=== PATIENT | male | born 1935 | race Caucasian/White ===

== ENCOUNTER 2016-10-14 15:22 | Inpatient (IN) | payer OTHER ==
[~2016-10-14] VITALS: Ht 170.2 cm; Wt 73.5 kg
[~2016-10-14 15:22] MED LIST: ASPI-COR81 M3 PO; METOPROLOL SUCC50 M1 PO; PHOSLO667 MG PO; SIMVASTATIN10 M1 PO
[2016-10-14] MEDS ORDERED: NIFEDIPINE60 MG PO (18:53)
[2016-10-14 18:54] LABS: PLATELET COUNT 163 x10^3mcL (130-400)
[2016-10-14] MEDS ORDERED: LOSARTAN POTASS50 M1 PO (18:54)
[2016-10-14] MEDS ORDERED: HYDRALAZINE HCL25 MG PO (18:54)
[2016-10-14 19:13] LABS: RED CELL DISTRIBUTION WIDTH 14.8 % (11.5-14.5)
[2016-10-14 19:17] LABS: ALBUMIN 3.5 g/dL (3.4-5.0); ALKALINE PHOSPHATASE 149 U/L (46-116); ALT/SGPT 20 U/L (16-63); AST/SGOT 19 U/L (15-37); BILIRUBIN TOTAL 0.62 mg/dL (0.20-1.00); CALCIUM 8.3 mg/dL (8.5-10.1); CARBON DIOXIDE 33.5 mmol/L (21-32); CHLORIDE SERUM 103 mmol/L (98-107); GLUCOSE SERUM 320 mg/dL (74-106); HDL CHOLESTEROL 57 mg/dL (40-60); LIPASE 274 IU/L (73-393); POTASSIUM SERUM 3.9 mmol/L (3.5-5.1); SODIUM SERUM 141 mmol/L (136-145); TOTAL PROTEIN, SERUM 6.6 g/dL (6.4-8.2); TRIGLYCERIDES 55 mg/dL (<150)
[2016-10-14 19:18] LABS: CHOLESTEROL 100 mg/dL (<200); CHOLESTEROL/HDL RATIO 1.8
[2016-10-14 19:19] LABS: CREATININE SERUM 4.1 mg/dL (0.7-1.3)
[2016-10-14 19:20] LABS: T3 TOTAL 0.88 ng/mL
[2016-10-14 19:31] LABS: FREE T4 1.3 ng/dL (0.76-1.46); FREE THYROXINE INDEX 3.1 ug/dL (1.4-4.5); T4(THYROXINE) 8.5 ug/dL (4.7-13.3)
[2016-10-14 19:46] LABS: BAND NEUTROPHIL 7 % (0-10); BASOPHIL 0 % (0-2); MONOCYTE 5 % (0-7); SEGMENTED NEUTROPHILS 86 % (37-75)
[2016-10-14 19:47] LABS: PLATELET MORPHOLOGY PLATELET
[2016-10-14 20:19] LABS: UA SPECIFIC GRAVITY 1.015 (1.005-1.035); microscopic required? YES; urine erythrocyte TRACE (NEGATIVE)
[2016-10-14 21:00] LABS: MAGNESIUM 2.3 mg/dL (1.8-2.4); PHOSPHOROUS 2.5 mg/dL (2.5-4.9)
[2016-10-14 21:19] VITALS: BP 159/73
[2016-10-15 05:37] VITALS: BP 182/77
[2016-10-15 06:05] LABS: PLATELET COUNT 144 x10^3mcL (130-400); RED CELL DISTRIBUTION WIDTH 13.9 % (11.5-14.5)
[2016-10-15 06:50] LABS: CALCIUM 8.4 mg/dL (8.5-10.1); CARBON DIOXIDE 33.2 mmol/L (21-32); CHLORIDE SERUM 106 mmol/L (98-107); GLUCOSE SERUM 97 mg/dL (74-106); MAGNESIUM 2.1 mg/dL (1.8-2.4); PHOSPHOROUS 3.5 mg/dL (2.5-4.9); POTASSIUM SERUM 4.4 mmol/L (3.5-5.1); SODIUM SERUM 144 mmol/L (136-145)
[2016-10-15 06:56] LABS: CREATININE SERUM 4.8 mg/dL (0.7-1.3)
[2016-10-15 09:25] VITALS: BP 149/73
[2016-10-15 13:56] VITALS: BP 145/78
[2016-10-15 18:03] VITALS: BP 149/69
[2016-10-15 21:35] VITALS: BP 135/59
[2016-10-16 05:49] VITALS: BP 144/64
[2016-10-16 06:28] LABS: CALCIUM 8.6 mg/dL (8.5-10.1); CARBON DIOXIDE 32.6 mmol/L (21-32); CHLORIDE SERUM 102 mmol/L (98-107); GLUCOSE SERUM 113 mg/dL (74-106); MAGNESIUM 2.4 mg/dL (1.8-2.4); PHOSPHOROUS 4.8 mg/dL (2.5-4.9); POTASSIUM SERUM 4.8 mmol/L (3.5-5.1); SODIUM SERUM 141 mmol/L (136-145)
[2016-10-16 06:43] LABS: BASOPHIL % 0.3 % (0-2); PLATELET COUNT 132 x10^3mcL (130-400)
[2016-10-16 06:54] LABS: CREATININE SERUM 6.8 mg/dL (0.7-1.3)
[2016-10-16 07:01] LABS: RED CELL DISTRIBUTION WIDTH 15.4 % (11.5-14.5)
[2016-10-16 10:20] VITALS: BP 126/55
[2016-10-16 14:04] VITALS: BP 107/51
[2016-10-16 18:00] VITALS: BP 105/45
[2016-10-16 22:18] VITALS: BP 118/51
[2016-10-17 06:00] VITALS: BP 118/57
[2016-10-17 06:22] LABS: BASOPHIL % 0.3 % (0-2)
[2016-10-17 06:38] LABS: CALCIUM 7.9 mg/dL (8.5-10.1); CARBON DIOXIDE 32.7 mmol/L (21-32); CHLORIDE SERUM 101 mmol/L (98-107); GLUCOSE SERUM 140 mg/dL (74-106); MAGNESIUM 1.9 mg/dL (1.8-2.4); POTASSIUM SERUM 3.9 mmol/L (3.5-5.1); SODIUM SERUM 141 mmol/L (136-145)
[2016-10-17 06:45] LABS: ALBUMIN 2.6 g/dL (3.4-5.0)
[2016-10-17 06:55] LABS: PLATELET COUNT 121 x10^3mcL (130-400); RED CELL DISTRIBUTION WIDTH 15.2 % (11.5-14.5)
[2016-10-17 09:07] VITALS: BP 93/40
[2016-10-17 17:32] VITALS: BP 105/40
[2016-10-17 19:55] VITALS: BP 116/47
[2016-10-17 22:08] VITALS: BP 130/48
[2016-10-18 06:17] VITALS: BP 123/51
[2016-10-18 06:38] LABS: BASOPHIL % 0.3 % (0-2)
[2016-10-18 06:43] LABS: CARBON DIOXIDE 32.5 mmol/L (21-32); CHLORIDE SERUM 102 mmol/L (98-107); GLUCOSE SERUM 104 mg/dL (74-106); MAGNESIUM 2.2 mg/dL (1.8-2.4); PHOSPHOROUS 4.5 mg/dL (2.5-4.9); POTASSIUM SERUM 4.2 mmol/L (3.5-5.1); SODIUM SERUM 140 mmol/L (136-145)
[2016-10-18 06:46] LABS: CREATININE SERUM 6.9 mg/dL (0.7-1.3)
[2016-10-18 07:13] LABS: PLATELET COUNT 116 x10^3mcL (130-400)
[2016-10-18 10:17] VITALS: BP 122/45
[2016-10-18 14:00] VITALS: BP 116/46
[2016-10-18 18:53] VITALS: BP 132/85
[2016-10-18 21:51] VITALS: BP 136/60
[2016-10-19 05:37] VITALS: BP 140/76
[2016-10-19 06:48] LABS: CALCIUM 7.9 mg/dL (8.5-10.1); CARBON DIOXIDE 28.9 mmol/L (21-32); CHLORIDE SERUM 103 mmol/L (98-107); GLUCOSE SERUM 147 mg/dL (74-106); MAGNESIUM 2.4 mg/dL (1.8-2.4); PHOSPHOROUS 5.2 mg/dL (2.5-4.9); POTASSIUM SERUM 5.1 mmol/L (3.5-5.1); SODIUM SERUM 139 mmol/L (136-145)
[2016-10-19 07:05] LABS: CREATININE SERUM 8.7 mg/dL (0.7-1.3)
[2016-10-19 07:14] LABS: BASOPHIL % 0.3 % (0-2); PLATELET COUNT 139 x10^3mcL (130-400)
[2016-10-19 08:15] LABS: rbc morphology (normal/abnorm) ABNORMAL (NORMAL)
[2016-10-19 14:11] VITALS: BP 103/45
[2016-10-19] MEDS ORDERED: METOPROLOL TART50 MG PO (14:47)
[2016-10-19] MEDS ORDERED: NOR10T PO (14:48)
[2016-10-19] MEDS ORDERED: COL250 PO (14:49)
[2016-10-19] MEDS ORDERED: NEP PO (14:50)
[2016-10-19] MEDS ORDERED: BISCOLAX10 MG RC (15:12)
[2016-10-19 16:45] VITALS: BP 103/45; BP 135/57
[2016-10-19 18:22] VITALS: BP 118/46
[2016-10-19 21:34] VITALS: BP 123/49
[2016-10-19 22:57] LABS: BASOPHIL % 0.4 % (0-2); PLATELET COUNT 172 x10^3mcL (130-400)
[2016-10-19 22:59] LABS: RED CELL DISTRIBUTION WIDTH 17.5 % (11.5-14.5)
[2016-10-19 23:22] LABS: CALCIUM 8.1 mg/dL (8.5-10.1); CARBON DIOXIDE 33.3 mmol/L (21-32); CHLORIDE SERUM 102 mmol/L (98-107); GLUCOSE SERUM 162 mg/dL (74-106); PHOSPHOROUS 3.9 mg/dL (2.5-4.9); SODIUM SERUM 141 mmol/L (136-145)
[2016-10-19 23:29] LABS: CREATININE SERUM 5.5 mg/dL (0.7-1.3)
[2016-10-20 06:21] VITALS: BP 144/63
[2016-10-20] MEDS ORDERED: CIPRO500 MG PO ×2 (06:28→14:46)
[2016-10-20] MEDS ORDERED: LAC PO (06:29)
[2016-10-20] MEDS ORDERED: FERG PO (06:34)
[2016-10-20] MEDS ORDERED: PRO4I IV (06:34)
[2016-10-20] MEDS ORDERED: PHARMASSURE VI500 MG PO (06:35)
[2016-10-20 10:17] VITALS: BP 135/57
== END 2016-10-20 16:16 | DRG 480 ==
LOC: ED 15:22 → MU 19:51 → DU 19:51 → MU 10-16 22:55
PROVIDERS: Family Medicine; Neuromusculoskeletal Medicine, Sports Medicine; Specialist; ADMIT Family Medicine
PROC: 0QS704Z Reposition Left Upper Femur with Internal Fixation Device, Open Approach (ICD-10-PCS; principal; 2016-10-16 07:30)
DX: S72.112A Displaced fracture of greater trochanter of left femur, initial encounter for closed fracture (principal); N18.6 End stage renal disease; I50.41 Acute combined systolic (congestive) and diastolic (congestive) heart failure; N17.0 Acute kidney failure with tubular necrosis; E43 Unspecified severe protein-calorie malnutrition; I13.2 Hypertensive heart and chronic kidney disease with heart failure and with stage 5 chronic kidney disease, or end stage renal disease; J98.11 Atelectasis; N39.0 Urinary tract infection, site not specified; E11.51 Type 2 diabetes mellitus with diabetic peripheral angiopathy without gangrene; I11.0 Hypertensive heart disease with heart failure; R80.8 Other proteinuria; Z91.81 History of falling; W18.39XA Other fall on same level, initial encounter; Y93.01 Activity, walking, marching and hiking; Y99.8 Other external cause status; Z99.2 Dependence on renal dialysis; Y92.098 Other place in other non-institutional residence as the place of occurrence of the external cause; Z68.25 Body mass index [BMI] 25.0-25.9, adult
CPT/HCPCS: 76001; 82962; 83880; 84439; 94150; 97110-GP; 97116-GP; 97530-GP; A4719; C1713; J0690; J0696; J0885-EC; J1170; J1644; J2270; J2405; J2704; J3010; J3490; J7030; J7040; J7050; P9016; Q0092